=== PATIENT | male | born 1980 | race Two or more races ===

== ENCOUNTER 2025-08-09 21:55 | Emergency (ER) | payer BC, SELFPAY ==
[2025-08-09 22:11] VITALS: BP 168/110; BP 178/103; PULSE 66; RESP 20; TEMP 36.8; O2SAT 96
--- NOTE | 2025-08-09 22:24 | XR_ITS ---
Examination: CT soft tissue neck, with intravenous contrast. 2-D coronal reconstructions. 2-D sagittal reconstructions. Date and time of exam : August 10, 2025, 0004 hours INDICATIONS: Sore throat 5 days, clinical diagnosis tonsillar abscess. CTDI: vol (mGy): 15.1 DLP: (mGycm): 428 Technique: 1.25 mm axial sections of the neck of the obtained. Coronal and sagittal reconstructions have been obtained. Intravenous contrast administered 50 cc Isovue-370. Low dose protocols were performed. One or more of the following dose reduction techniques were used; automated exposure control, adjustment of the mA and/or KV according to patient size, use of iterative reconstruction technique. Findings: Soft tissue tonsillar hypertrophy greater on the right side 24 x 18 mm right tonsillar abscess with significant impingement upon the oropharyngeal airway Edema extends to the supraglottic region The larynx appears normal Symmetrical thyroid lobes Normal epiglottis IMPRESSION: Soft tissue tonsillar hypertrophy 24 x 18 mm right tonsillar abscess with significant impingement upon the oropharyngeal airway
--- NOTE | 2025-08-09 22:25 | EDRME_ITS ---
Rapid Medical Screening Exam [facility] Arrival date/time: 08/09/25 21:55 45M with history of HTN presents to ED with 5 days of worsening sore throat and difficulty swallowing. Chief Complaint: Dental/Oral/Throat Vital signs: Vital Signs Temperature 98.2 F 08/09/25 22:11 Pulse Rate 66 08/09/25 22:11 Respiratory Rate 20 08/09/25 22:11 Blood Pressure 168/110 H 08/09/25 22:11 Pulse Oximetry (%) 96 08/09/25 22:11 Oxygen Delivery Method Room Air 08/09/25 22:11 Exam: R tonsillar abscess with uvula deviation. Muffled voice Clinical Impression: Tonsillar abscess vs pharyngeal abscess vs Lemierre's syndrome
[2025-08-09] MEDS: AMPICILLIN/SULBAC INJ 3 GM in SODIUM CHLORIDE 0.9% (POP) 100 ML IV (23:13)
[2025-08-09] MEDS: DEXAMETHASONE SOD PHOS INJ 10 MG/ML VIAL IVP (23:14)
[2025-08-09 23:21] LABS: Basophils # (Auto) 0.1 Thou/mm3 (0.0-0.2); Basophils % (Auto) 1 % (0-2.5); Eosinophils # (Auto) 0.2 Thou/mm3 (0.0-0.5); Eosinophils % (Auto) 2 % (0-10); Hematocrit 43.3 % (41.0-53.0); Hemoglobin 14.7 g/dL (13.5-16.0); Immature Granulocytes Auto 0.03 Thou/mm3 (0.00-0.00); Lymphocytes # (Auto) 2.8 Thou/mm3 (1.0-4.8); Lymphocytes % (Auto) 26 % (10-50); Mean Corpuscular HGB Conc 33.9 g/dl (31.0-37.0); Mean Corpuscular Hemoglobin 29.2 pg (25.0-35.0); Mean Corpuscular Volume 86 fL (80-100); Monocytes # (Auto) 1.0 Thou/mm3 (0.0-0.8); Monocytes % (Auto) 9 % (0-12); Neutrophils # (Auto) 6.5 Thou/mm3 (1.8-7.7); Neutrophils % (Auto) 62 % (37-80); Nucleated Red Blood Cell # 0.00 Thou/mm3 (0.00-0.00); Nucleated Red Blood Cell % 0 /100 WBC (0); Platelet Count 279 Thou/mm3 (140-440); RDW Standard Deviation 38.5 fL (35.1-43.9); Red Blood Count 5.03 Miln/mm3 (4.50-5.90); White Blood Count 10.5 Thou/mm3 (3.8-10.6)
[2025-08-09 23:43] LABS: Alanine Aminotransferase 81 U/L (10-49); Albumin, Serum 5.3 gm/dL (3.5-5.0); Albumin/Globulin Ratio 1.9 (1.2-2.2); Alkaline Phosphatase 77 U/L (46-116); Anion Gap 13 (7-16); Aspartate Amino Transferase 66 U/L (0-34); BUN/Creatinine Ratio 8 Ratio (12-20); Bilirubin,Total 1.0 mg/dL (0.3-1.2); Blood Urea Nitrogen 8 mg/dL (9-23); Calcium 9.8 mg/dL (8.3-10.6); Calcium (Corrected) 9.8 mg/dL (8.5-10.1); Carbon Dioxide 24.9 mMol/L (20.0-31.0); Chloride 101 mMol/L (98-107); Creatinine (Component) 1.0 mg/dL (0.6-1.3); Globulin 2.8 gm/dL (2.3-3.5); Glucose 101 mg/dL (74-106); Osmolality,Calculated 275 (275-295); Potassium 3.4 mMol/L (3.4-5.1); Sodium 139 mMol/L (136-145); Total Protein 8.1 gm/dL (5.7-8.2); eGFR > 60 See Note
--- NOTE | 2025-08-10 01:49 | PRELIM_ITS ---
CT scan of the neck with intravenous contrast (axial sections with sagittal and coronal reformats) August 10, 2025 0002 hours Clinical History: Tonsillar abscess. Comparison: No prior study is available for comparison. Findings: The evaluation is limited due to motion artifacts. The palatine tonsils are enlarged and demonstrate heterogeneous enhancement (right greater than left), suggestive of tonsillitis. Fluid is seen in the right peritonsillar, parapharyngeal and retropharyngeal spaces. There is an ill- defined right peritonsillar fluid collection, measuring 2 x 1.5 x 2 cm (axial images 26-, series 3), suggestive of an abscess. There is severe narrowing of the oropharyngeal airway. The adenoids appear mildly prominent. Enlarged upper mid cervical lymph nodes are seen, the largest measuring 1.4 cm in the right jugulodigastric region, likely reactive. The hypopharynx, supraglottic and infraglottic larynx, vocal cords and upper trachea are unremarkable. The epiglottis and aryepiglottic folds appear unremarkable. The parotid, submandibular glands and thyroid are unremarkable. The vessels of the neck are well opacified. No filling defect is seen. The superficial soft tissues of the neck are unremarkable. The osseous structures are unremarkable. The visualized lung apices are clear. Impression: Findings consistent with tonsillitis with right peritonsillar abscess (2 cm) causing severe narrowing of the oropharyngeal airway as described. Other findings as described above. Suggest clinical correlation and follow up accordingly. Discussion Details: Results Discussed With : Dr. Jones at 01:43 AM 08/10/2025 Report Electronically Signed By: Chava Herr 08/10/2025 1:49:16 AM [EST]
--- NOTE | 2025-08-10 02:02 | PD.EDSKIN ---
ED Skin Abcess FB-RME/HPI General Chief complaint: Dental/Oral/Throat Stated complaint: SORE THROAT Time Seen by Provider: 08/10/25 01:57 Arrival date/time: 08/09/25 21:55 RME / HPI RME / HPI narrative: 08/09/25 21:55 CC: Sore throat Patient is a 45-year-old male with a past medical history of hypertension who presented to the emergency room via private vehicle with a chief complaint of sore throat. Sore throat started Tuesday (08/05/2025) and followed up with urgent care on Tuesday and was prescribed Augmentin 875 twice daily and tested positive for strep. Patient is now reported swelling and mild pain. Mild discomfort with swallowing. Sick contacts at home with . No cough. Denied fever or chills at home. CT soft tissue neck w/ con Unasyn X, Dexamethasone 10 mg IV X 1, Benzocaine X 1 Exam: R tonsillar abscess with uvula deviation. Muffled voice Impression: Tonsillar abscess vs pharyngeal abscess vs Lemierre's syndrome Related Data Home Medications ?Medication ?Instructions ?Recorded ?Confirmed calcium carb-ergocalciferol (vit 600 tab PO QDAY 08/04/21 08/04/21 D2) 600 mg calcium-200 unit tablet ibuprofen 200 mg tablet 200 mg PO Q8H PRN Pain 08/04/21 08/04/21 Previous Rx's ?Medication ?Instructions ?Recorded amlodipine 10 mg tablet 10 mg PO QDAY #30 tabs 08/05/21 Allergies Allergy/AdvReac Type Severity Reaction Status Date / Time No Known Allergies Allergy Verified 08/09/25 21:56 Review of Systems Review of Systems Narrative Review of Systems: General appearance: NO weight change, NO fatigue, NO weakness, NO fever, NO chills, NO night sweats, No cough Skin: NO rash, NO itching, NO sores, NO moles HEENT: NO Trauma, NO nausea, NO vomiting, NO visual changes, NO blurry vision, NO double vision, NO tinnitus, NO vertigo, NO ear discharge, NO rhinorrhea, NO stuffiness, NO sneezing, NO allergy, NO epistaxis. NO Hoarseness, Yes sore throat, NO swollen neck. Cardiac: NO Palpitations, NO dyspnea on exertion, NO orthopnea, NO paroxysmal nocturnal dyspnea, NO edema Respiratory: NO Shortness of Breath, NO Wheezing, NO Cough, NO Sputum, NO hemoptysis GI:NO appetite, NO nausea, NO vomiting, NO dysphagia, NO changes in bowel frequency, NO stool color, NO diarrhea, NO constipation, NO hemetemesis, NO hemorrhoids, NO melena, NO hematechezia, NO abdominal pain, NO jaundice Renal: NO frequency, NO hesitancy, NO urgency, NO hematuria, NO nocturia, NO incontinence MSK: NO muscle weakness, NO gout, NO arthritis, NO muscle stiffness Neuro: NO headaches, NO tremors, NO weakness, NO paralysis, NO seizures, NO loss of consciousness, NO numbness. Hem: NO anemia, NO easy bruising/bleeding, NO petechiae, NO purpura Endo: NO heat/cold intolerance, NO excessive sweating, NO polyuria, NO polydipsia, NO polyphagia, NO thyroid problems, NO diabetes Pysch: NO mood, NO anxiety, NO depression ED Exam Narrative Physical exam: General Appearance: Alert & Oriented X3, well-nourished male who is lying in bed in no acute distress HEENT: Skull symmetrical and atraumatic. Conjunctivae pink and moist. Pupils equal, round, reactive to light and accommodation (PERRL). External ear without lesion or discharge. Patient has posterior oropharyngeal injection without exudates. Right tonsil appear earythematous and swollen with right to left deviation of the posterior oropharynx. No discharge noted. No open lesions noted. No stones noted. Cardio: Normal Rate and Rhythm with S1 and S2 heart sounds. No murmurs or extra heart sounds auscultated. No bruits on carotid auscultation. No peripheral edema or cyanosis. Lungs: Symmetric with good expansion. Chest and back non-tender. Breath sounds vesicular without crackles, wheezing or rhonchi Abdomen: Non-tender, Non-distended, Normal Reactive Bowel Sounds Neuro: Alert, cooperative, oriented to person, place, and time. Speech clear. CN grossly intact. Upper motor strength 5/5 and Lower motor strength 5/5. Sensation intact. Course Quality Measures none Orders Category Date Time Status CT Screening NOW Care 08/09/25 22:24 Active Insert IV NOW Care 08/09/25 22:[address] soft tissue neck w con Stat Exams 08/09/25 22:24 Taken CBC Stat Lab 08/09/25 23:06 Completed CMP [Comprehensive Metabolic Panel] Stat Lab 08/09/25 23:06 Completed Ampicillin/Sulbac Inj [Unasyn Inj] 3 gm Med 08/09/25 22:29 Discontinued Sodium Chloride 0.9% (Pop) [NS 0.9% mini bag] 100 ml IV X1 BENZOCAINE(hurricane) SPRAY [Hurricane 20% [place]] Med 08/10/25 02:06 Active See Dose Instructions TOP PRN PRN Dexamethasone Inj [Decadron Inj] Med 08/09/25 22:24 Discontinued 10 mg IVP X1 ONE Vital Signs Vital signs: Vital Signs Temperature 98.2 F 08/09/25 22:11 Pulse Rate 66 08/09/25 22:11 Respiratory Rate 20 08/09/25 22:11 Blood Pressure 168/110 H 08/09/25 22:11 Pulse Oximetry (%) 96 08/09/25 22:11 Oxygen Delivery Method Room Air 08/09/25 22:11 PROCEDURES: Abscess I/D Site: other (Peritonsillar) Side (if applicable): right Sedation/analgesia: none Local Anesthetic: other anesthetic (HurriCaine spray to the right posterior) Amount of anesthesia used (mL): 3 Technique: needle aspiration Amount of fluid expressed (mL): 3 Irrigation: No Packing used?: none Complications: other (None) Skin / Abscess / Foreign Body MDM Narrative MDM Narrative:: Patient with right peritonsillar abscess. HurriCaine spray was used for anesthesia and with suction ready I used needle aspiration and took out 3 cc of purulent liquid. Patient data External records reviewed:: [facility] previous records Clinical information provided by:: patient Social determinants that could affect healthcare access:: none Patient has the following chronic illnesses:: HTN How is presenting disease/condition affected by chronic disease/condition?: uneffected by (HTN ) Evaluation data The following diagnostics were reviewed and interpreted by me:: radiology exam(s) Lab and/or radiology exams considered but not ordered:: None Interpretation Summary: CT soft tissue neck: Findings consistent with tonsillitis with right peritonsillar abscess (2 cm) causing severe narrowing of the oropharyngeal airway as described. Other findings as described above. Medications / Prescriptions Medications or Prescriptions considered but not ordered:: None Medication administrations:: Medication Administration History Benzocaine (Benzocaine 20% (Hurricaine) [place] 1 Dose) 0 dose TOP PRN PRN PRN Reason: Tonsilar Abscess Stop: 09/09/25 02:05 Last Admin: 08/10/25 02:58 Dose: 1 dose Documented By: HILDA Comments: ADMINISTRATED BY DR CONTRERAS Discontinued Medications Dexamethasone Sodium Phosphate (Dexamethasone Sod Phos Inj 10 Mg/Ml Vial) 10 mg IVP X1 ONE Stop: 08/09/25 22:25 Last Admin: 08/09/25 23:14 Dose: 10 mg Documented By: BD Ampicillin Sodium/Sulbactam (Sodium 3 gm/ Sodium Chloride) 100 mls @ 200 mls/hr IV X1 ONE Stop: 08/09/25 22:30 Last Infusion: 08/09/25 23:45 Dose: Infused Documented By: Admin: 08/09/25 23:13 Dose: 200 mls/hr Documented By: IDALIA same as above Consultations Consultation(s) initiated? (list below): No Diagnosis Skin/Abscess Differential Diagnosis: abscess of skin or subcutaneous tissue, allergic reaction to drug and other (pharyngititis ) Most likely diagnosis given after review of the tests above:: Most likely diagnosis peritonsillar abscess given CT images and pharyngitis given erythema. s/p syringe drain Admission Indicated Admission indicated?: not indicated Admission Request Was there a request for admission?: No Disposition Plan Disposition Plan: Discharge Discharge Attestation Discharge Attestation: The patient and all family members were given an opportunity to ask questions and understood the discharge instructions. Discharge instructions specifically effects, indications for sooner follow up or return to the emergency department, and the expected course of current diagnosis. Patient condition: Stable Discharge Plan Plan Patient Disposition: HOME (Self Care) Patient condition on transfer: Stable Health Concerns: Instructions: -Please continue your augmentin that was prescribed by emergency room and complete antibiotic course as prescribed for your peritonsillar abscess -May take ibuprofen as needed every 8 hrs after draining abscess with syrindge, do not take more than 3,000 mg in 24 hr period. -Please follow up with your primary care provider within one week of discharge -If your symptoms worsen,please seek immediate medical attention and return to your nearest emergency room -If you do not have a primary care provider, you may follow up at the [facility] at [address], [place] [address], Prescriptions/Referrals Prescriptions/Med Rec: Continued ibuprofen 200 mg Tablet 200 mg PO Q8H PRN (Reason: Pain) Rx Instructions: patient takes it only as needed for pain, OTC calcium carbonate-vitamin D2 600 mg calcium- 200 unit Tablet 600 tab PO QDAY Rx Instructions: patient takes otc calcium with vitamins once a day amlodipine 10 mg tablet 10 mg PO QDAY Qty: 30 0RF Problem List Clinical Impression: Abscess, peritonsillar, Pharyngitis Patient/Caregiver Discharge Instructions Education Materials: ED Peritonsillar Abscess Print Language: Tuvaluan Stand Alone Forms: [employer] Info., Patient Portal Info Letter
[2025-08-10 02:48] VITALS: BP 143/94; PULSE 62; RESP 19; TEMP 37.2; O2SAT 94
[2025-08-10] MEDS: BENZOCAINE 20% (Hurricaine) SPRAY 1 DOSE TOP (02:58)
--- NOTE | 2025-08-10 03:30 | PD.EDDENTL ---
ED Dental RME/HPI General Chief complaint: Dental/Oral/Throat Stated complaint: SORE THROAT Time Seen by Provider: 08/10/25 01:57 Arrival date/time: 08/09/25 21:55 RME / HPI RME / HPI Narrative: 08/09/25 21:55 45M with history of HTN presents to ED with 5 days of worsening sore throat and difficulty swallowing. Dr. Contreras?s Main ED Evaluation: 45 y/o male with Hx of HTN and Asthma presents to ED c/o worsening sore throat and difficulty swallowing x 5 days. Patient Exam: R tonsillar abscess with uvula deviation. Muffled voice Impression: Tonsillar abscess vs pharyngeal abscess vs Lemierre's syndrome Related Data Home Medications ?Medication ?Instructions ?Recorded ?Confirmed calcium carb-ergocalciferol (vit 600 tab PO QDAY 08/04/21 08/04/21 D2) 600 mg calcium-200 unit tablet ibuprofen 200 mg tablet 200 mg PO Q8H PRN Pain 08/04/21 08/04/21 Previous Rx's ?Medication ?Instructions ?Recorded amlodipine 10 mg tablet 10 mg PO QDAY #30 tabs 08/05/21 Allergies Allergy/AdvReac Type Severity Reaction Status Date / Time No Known Allergies Allergy Verified 08/09/25 21:56 Review of Systems Review of Systems Systems Reviewed: All systems reviewed, normal except as documented Past Medical History Past Medical History CARDIAC: Positive Hypertension RESPIRATORY: Positive Asthma ED Exam Narrative Physical exam: GENERAL APPEARANCE: alert and oriented x 4, well-developed, well-nourished, no acute distress VITALS: All vitals were reviewed and the pulse ox is 94% on room air, which is low according to my interpretation. HEENT: Normocephalic, atraumatic; pupils equal, round, reactive to light; EOMI; mucous membranes pink, moist; oropharynx clear NECK: Supple LUNGS: CTABL; no wheezes, no rales, no rhonchi HEART: Regular rate, regular rhythm; normal S1, S2; no murmurs ABDOMEN: non distended; normal BS; soft, no tenderness, no guarding, no rebound; no masses, no organomegaly, no hernia BACK: no CVA tenderness EXTREMITIES: atraumatic; no edema NEUROLOGIC: awake; alert and oriented x4; cranial nerves II-XII grossly intact; no focal sensory or motor deficits PSYCHIATRIC: appropriate mood and affect SKIN: warm, dry, normal color; no rashes Course Quality Measures none Orders Category Date Time Status CT Screening NOW Care 08/09/25 22:24 Active Insert IV NOW Care 08/09/25 22:[address] soft tissue neck w con Stat Exams 08/09/25 22:24 Taken CBC Stat Lab 08/09/25 23:06 Completed CMP [Comprehensive Metabolic Panel] Stat Lab 08/09/25 23:06 Completed Ampicillin/Sulbac Inj [Unasyn Inj] 3 gm Med 08/09/25 22:29 Discontinued Sodium Chloride 0.9% (Pop) [NS 0.9% mini bag] 100 ml IV X1 BENZOCAINE(hurricane) SPRAY [Hurricane 20% [place]] Med 08/10/25 02:06 Active See Dose Instructions TOP PRN PRN Dexamethasone Inj [Decadron Inj] Med 08/09/25 22:24 Discontinued 10 mg IVP X1 ONE Vital Signs Vital signs: Vital Signs Temperature 98.2 F 08/09/25 22:11 Pulse Rate 66 08/09/25 22:11 Respiratory Rate 20 08/09/25 22:11 Blood Pressure 168/110 H 08/09/25 22:11 Pulse Oximetry (%) 96 08/09/25 22:11 Oxygen Delivery Method Room Air 08/09/25 22:11 PROCEDURES: Abscess I/D Site: oral Side (if applicable): right Local Anesthetic: lidocaine 1% Dental / Oral MDM Narrative MDM Narrative:: Scribe Attestation: Estephania Khan am scribing for and in the presence of Dr. Contreras. Provider Notation: Although this document has been carefully reviewed, there may still be some phonetic and other typographical errors. These errors are purely grammatical due to imperfections in the software program and should not be construed in any way to compromise the substance of the patient's medical care during this visit. Patient data External records reviewed:: [facility] previous records (No prior ED records available for review) Clinical information provided by:: patient Social determinants that could affect healthcare access:: none Medications / Prescriptions Medication administrations:: Medication Administration History Benzocaine (Benzocaine 20% (Hurricaine) [place] 1 Dose) 0 dose TOP PRN PRN PRN Reason: Tonsilar Abscess Stop: 09/09/25 02:05 Last Admin: 08/10/25 02:58 Dose: 1 dose Documented By: HILDA Comments: ADMINISTRATED BY DR CONTRERAS Discontinued Medications Dexamethasone Sodium Phosphate (Dexamethasone Sod Phos Inj 10 Mg/Ml Vial) 10 mg IVP X1 ONE Stop: 08/09/25 22:25 Last Admin: 08/09/25 23:14 Dose: 10 mg Documented By: BD Ampicillin Sodium/Sulbactam (Sodium 3 gm/ Sodium Chloride) 100 mls @ 200 mls/hr IV X1 ONE Stop: 08/09/25 22:30 Last Infusion: 08/09/25 23:45 Dose: Infused Documented By: Admin: 08/09/25 23:13 Dose: 200 mls/hr Documented By: IDALIA Discharge Plan Prescriptions/Referrals Prescriptions/Med Rec: No Action ibuprofen 200 mg Tablet 200 mg PO Q8H PRN (Reason: Pain) Rx Instructions: patient takes it only as needed for pain, OTC calcium carbonate-vitamin D2 600 mg calcium- 200 unit Tablet 600 tab PO QDAY Rx Instructions: patient takes otc calcium with vitamins once a day amlodipine 10 mg tablet 10 mg PO QDAY Qty: 30 0RF Patient/Caregiver Discharge Instructions Print Language: Hungarian
[2025-08-10 03:59] VITALS: BP 149/105; PULSE 76; RESP 16; TEMP 37.1; O2SAT 92
[2025-08-10 04:06] VITALS: BP 142/99; PULSE 78; RESP 16; TEMP 37.2; O2SAT 98
== END 2025-08-10 04:07 | disposition home or self-care (01) ==
LOC: SERX 08-10 04:27
PROVIDERS: Physician Assistant; Emergency Provider Emergency Medicine
DX: J36 Peritonsillar abscess (principal)
CPT/HCPCS: 42999; 36415; 70491; 80053; 85025; 96365; 96375; 99284; A4649; J0295; J1100; J3490; Q9967; A9270